=== PATIENT | female | born 1950 | race African-American/Black ===

== ENCOUNTER 2022-11-19 14:17 | Emergency (ER) | payer OTHER ==
[~2022-11-19] VITALS: Ht 160 cm; Wt 77.3 kg
[2022-11-19] MEDS ORDERED: LOSA-424 PO (14:29)
[2022-11-19] MEDS ORDERED: ASPI81TA87 PO (14:29)
[2022-11-19] MEDS ORDERED: APIX5TAB PO (14:29)
[2022-11-19] MEDS ORDERED: GABA-1216 PO (14:29)
[2022-11-19] MEDS ORDERED: ARIP5TAB58 PO (14:29)
[2022-11-19] MEDS ORDERED: CEFP200T12 PO (14:29)
[2022-11-19] MEDS ORDERED: METO25TA3 PO (14:29)
[2022-11-19] MEDS ORDERED: ARIP5TAB8 PO (14:29)
[2022-11-19] MEDS ORDERED: ATOR40TA71 PO (14:29)
[2022-11-19] MEDS ORDERED: METO25 PO (14:32)
[2022-11-19] MEDS ORDERED: LORazepam 1 MG TABLET PO ONE (17:30)
[2022-11-19 19:30] VITALS: BP 130/56
== END 2022-11-19 19:31 | disposition home or self-care (01) ==
LOC: EMS 14:17
DX: F41.9 Anxiety disorder, unspecified (principal); I10 Essential (primary) hypertension; F32.A Depression, unspecified; Z98.51 Tubal ligation status
CPT/HCPCS: 99283